=== PATIENT | female | born 1960 | race Caucasian/White ===

== ENCOUNTER 2017-04-17 12:59 | Emergency (ER) | payer OTHER ==
[2017-04-17 13:06] VITALS: O2SAT 95
--- NOTE | 2017-04-17 13:32 | EDPHY ---
H & P Time Seen by Provider: 04/17/17 13:07 HPI/ROS: CHIEF COMPLAINT: Right ankle injury HISTORY OF PRESENT ILLNESS: Patient [place] and [place] her ankle. Of note she sprained it pretty badly about 4 weeks ago and this was her 1st hikes since that injury. [place] a snap. REVIEW OF SYSTEMS: No other injuries. PAST MEDICAL HISTORY: Cholecystectomy and tonsillectomy. Social history: Nonsmoker General Appearance: Alert and conversant, cooperative. Proximal tib-fib intact and nontender. Compartment soft. Lateral malleolus swelling and tenderness on the right ankle. Joint stable, Achilles nontender, foot nontender. Skin intact, normal motor sensory and dorsalis pedis pulse. Emergency Department course/MDM: X-ray the right ankle. 1400: Results discussed with the patient, likely sprain without fracture. Air cast and orthopedic referral. Smoking Status: Never smoked Constitutional: Initial Vital Signs Temperature (C) 36.9 C 04/17/17 13:03 Heart Rate 94 04/17/17 13:03 Respiratory Rate 17 04/17/17 13:03 Blood Pressure 138/97 H 04/17/17 13:03 O2 Sat (%) 95 04/17/17 13:03 O2 Delivery Mode Room Air Allergies/Adverse Reactions: Sulfa (Sulfonamide Antibiotics) Allergy (Verified 04/17/17 13:02) Home Medications: Medication Instructions Recorded NK [No Known Home Meds] 04/17/17 MDM/Departure - MDM Diagnostics: Right ankle x-ray personally interpreted negative for fracture or dislocation Imaging Results: Imaging Impressions Ankle X-Ray 04/17/17 13:19 Impression: No acute osseous findings. - Depart Disposition: Home, Routine, Self-Care Clinical Impression: Right ankle sprain Qualifiers: Encounter type: initial encounter Involved ligament of ankle: unspecified ligament Qualified Code(s): S93.401A - Sprain of unspecified ligament of right ankle, initial encounter Condition: Good Instructions: Ankle Sprain (ED) Referrals: EG MILNER [Other] - As per Instructions Guanaco Dacosta MD [Medical Doctor] - 5-7 days, if not improved (ortho followup)
[2017-04-17 14:29] VITALS: BP 143/79; PULSE 82; RESP 14; TEMP 97.7
== END 2017-04-17 14:29 | disposition home or self-care (01) ==
DX: S93.401A Sprain of unspecified ligament of right ankle, initial encounter (principal); X58.XXXA Exposure to other specified factors, initial encounter; Y99.8 Other external cause status
CPT/HCPCS: L3260; L4350